=== PATIENT | male | born 1955 | race Caucasian/White ===

== ENCOUNTER 2022-08-27 12:39 | Outpatient (CLI) | payer MEDICARE, MEDICAID, SELFPAY ==
--- NOTE | ~2022-08-27 | CT_ITS ---
EXAMINATION:CT lung screening DATE: 08/27/2022 13:56 INDICATION: Personal history of nicotine dependence. Current smoker with 52 pack year history. TECHNIQUE: Computed tomography (CT) of the chest was performed without intravenous contrast. Automate d exposure control and iterative reconstruction technique were employed. The dose-length product (DLP ) was 107.91 mGy-cm. COMPARISON: None. FINDINGS: There is scarring at the lung apices. There is severe emphysema. There is mild bronchiectas is in the inferior lungs. There are nodules in left upper lobe measuring up to 5 mm. There is a 4 mm nodule in right upper lobe. No pleural effusion. There is a 1.8 cm subcutaneous mass in right posteri or superior thorax, likely a sebaceous cyst. The heart size is normal. There are coronary artery calc ifications. No pericardial effusion. There is mild thoracic spondylosis. There is mild chronic anteri or wedging of multiple vertebral bodies. IMPRESSION: 1. Lung-RADS category 2: Benign appearance or behavior. Continue annual screening with noncontrast lo w-dose chest CT in 12 months. Reviewed, dictated and finalized at location E. IMPRESSION: 1. Lung-RADS category 2: Benign appearance or behavior. Continue annual screeni ng with noncontrast low-dose chest CT in 12 months.
--- NOTE | 2022-08-27 12:00 | ECHO_ITS ---
Patient Info Name: Dong Olivares Age: 67 years : 1955 Gender: Male Ht: 67 in Wt: 160 lbs BSA: 1.86 m2 HR: 86 bpm BP: 156 / 85 mmHg Heart Rhythm: Sinus Rhythm Technical Quality: Poor Exam Date: 08/27/2022 12:46 PM Exam Location: [facility], [place] Patient Status: Outpatient Admit Date: 08/27/2022 Staff Ordering Physician: Alan, Adrian PEDROZA Loop Tacker: Keila Hagan RDCS Attending Provider: Alan, Adrian PEDROZA Exam Type: CA echo doppler color flow Study Info Indications - chest pain on exertion Complete two-dimensional, color flow and Doppler transthoracic echocardiogram is performed. Reason for Poor Study: poor echocardiographic windows Summary 1. Complete two-dimensional, color flow and Doppler transthoracic echocardiogram is performed. 2. Left ventricular chamber dimension is normal. 3. Left ventricular systolic function is normal, estimated at 60-65%. 4. The left ventricular diastolic function is grade I diastolic dysfunction. 5. There is mild aortic valve sclerosis. 6. There is trace tricuspid valve regurgitation. 7. No pulmonary hypertension, estimated pulmonary arterial systolic pressure is 29 mmHg. Left Ventricle Tissue doppler E/e' was not performed. Left ventricular chamber dimension is normal. Left ventricular systolic function is normal, estimated at 60-65%. The left ventricular diastolic function is grade I diastolic dysfunction. Right Ventricle Right ventricular systolic function is normal and with normal TAPSE 2.3 cm. Right ventricular chamber dimension is normal. Left Atria Left atrial chamber dimension is normal. Right Atria Right atrial chamber dimension is normal. Aortic Valve The aortic valve is trileaflet. There is mild aortic valve sclerosis. There is no aortic valve stenosis. There is no aortic valve regurgitation. Pulmonic Valve There is no pulmonic regurgitation. Mitral Valve There is no mitral valve stenosis. There is no mitral valve regurgitation. Tricuspid Valve There is trace tricuspid valve regurgitation. No pulmonary hypertension, estimated pulmonary arterial systolic pressure is 29 mmHg. Pericardium/Pleural There is no pericardial effusion. Inferior Vena Cava Normal inferior vena cava with >50% collapse upon inspiration consistent with normal right atrial pressure, 5 mmHg. Aorta The aortic root size at the sinus of Valsalva is normal. Left Ventricular Outflow Tract Name Value Normal LVOT 2D LVOT Diameter 2.2 cm LVOT Doppler LVOT Peak Velocity 85 cm/s LVOT Peak Gradient 3 mmHg LVOT Mean Gradient 1 mmHg LVOT VTI 18 cm LVOT VTI/AV VTI Ratio 0.8 LVOT Stroke Volume 71 ml Pulmonic Valve Name Value Normal RVOT Doppler RVOT Peak Gradient 6 mmHg PV Doppler
== END 2022-08-27 12:40 | disposition home or self-care (01) ==
LOC: CHSIMG 12:44
PROVIDERS: PCP Physician Assistant; Visit Provider Registered Nurse
DX: R07.9 Chest pain, unspecified (principal); Z12.2 Encounter for screening for malignant neoplasm of respiratory organs; Z87.891 Personal history of nicotine dependence; I35.8 Other nonrheumatic aortic valve disorders
CPT/HCPCS: 71271; 93306